=== PATIENT | male | born 1985 | race African-American/Black ===

== ENCOUNTER 2019-01-23 15:54 | Emergency (ER) | payer OTHER ==
[~2019-01-23] VITALS: Ht 175.3 cm; Wt 79.4 kg
[2019-01-23 15:50] VITALS: BP 132/90
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
[2019-01-23] MEDS ORDERED: Bacitracin Oint UD TOPIC ONE ×2 (16:00→16:01)
--- NOTE | 2019-01-23 16:06 | NUR ---
ED Nurse Note:pt. was brought by [employer] for med clearance for booking, pt. injured his left wrist, has a few skin abrasions, bacitricin was placed on abrasions and pain med is given
[2019-01-23] MEDS ORDERED: BACITRACIN-P28.35 GM TP (17:28)
[2019-01-23] MEDS ORDERED: IBUPROFEN600 MG ORAL (17:28)
[2019-01-23 17:33] VITALS: BP 132/90
--- NOTE | 2019-01-24 12:28 | Diagnostic Imaging Report ---
Clinical Indication:Pain Technique: 3 views of the left wrist Comparison: None Findings: Bony alignment is normal. No acute fractures. No dislocations. The joint spaces are preserved Impression: Negative
== END 2019-01-23 17:33 | disposition home or self-care (01) ==
LOC: EDBD 15:54 → EMR 16:10
DX: S63.502A Unspecified sprain of left wrist, initial encounter (principal); S00.83XA Contusion of other part of head, initial encounter; Y35.893A Legal intervention involving other specified means, suspect injured, initial encounter; Y92.89 Other specified places as the place of occurrence of the external cause
CPT/HCPCS: 99283